=== PATIENT | male | born 1950 | race Caucasian/White ===

== ENCOUNTER 2020-05-21 07:15 | Outpatient (CLI) | payer MEDICARE, SELFPAY ==
--- NOTE | ~2020-05-21 | US_ITS ---
EXAMINATION: US abdomen limited DATE: 05/21/2020 07:44 INDICATION: Abnormal liver function tests. TECHNIQUE: Multiple grayscale and Doppler ultrasound images of the abdomen were obtained. COMPARISON: None FINDINGS: The visualized portions of the head and body of the pancreas are normal. There is diffuse h epatic steatosis. There is normal flow in main portal vein. The gallbladder is absent. The common telma t is normal and measures 3 mm. There is a 2.4 cm hypoechoic mass in right kidney. IMPRESSION: 1. Diffuse hepatic steatosis. 2. 2.4 cm hypoechoic mass in right kidney, which may be a cyst or less likely a neoplasm. Abdomen CT without and with contrast is recommended. Reviewed, dictated and finalized at location A.
== END 2020-05-21 07:16 | disposition home or self-care (01) ==
PROVIDERS: PCP Family Medicine; Visit Provider Family Medicine
DX: R74.8 Abnormal levels of other serum enzymes (principal); K76.0 Fatty (change of) liver, not elsewhere classified
CPT/HCPCS: 76705

== ENCOUNTER 2020-05-27 08:12 | Outpatient (CLI) | payer MEDICARE, SELFPAY ==
--- NOTE | ~2020-05-27 | CT_ITS ---
EXAMINATION: CT abdomen wo/w con INDICATION: Cysts of the right kidney, acquired TECHNIQUE: Computed tomographic images of the abdomen were obtained prior to and following the admini stration of 100 cc of Omnipaque 350 intravenous contrast. The dose-length product (DLP) was 1685.00 m Gy-cm. Automated exposure control and iterative reconstruction technique were employed. COMPARISON: Ultrasound, 05/21/2020 FINDINGS: There are widespread groundglass opacities in the visualized lung bases. Cardiomegaly is no yousif. There are partially imaged pacemaker leads. The gallbladder is surgically absent. Punctate calci fications in the spleen likely represent healed granulomatous disease. A 12 mm cyst is present in the spleen. The liver is diffusely low in attenuation when compared with the spleen, consistent with hep atic steatosis. The pancreas and adrenal glands are normal. There is a 2.6 cm exophytic lesion of the right kidney corresponding to the ultrasound finding in question which measures greater than fluid d ensity but does not enhance, most consistent with a proteinaceous cyst. There is a 1.1 cm cyst in the right mid kidney. Cysts of the left kidney measure up to 1.3 cm. There are no pathologically enlarge d abdominal lymph nodes. A retroaortic left renal vein is noted. There is no free intraperitoneal gas or evidence of bowel obstruction. IMPRESSION: 1. Proteinaceous cyst of the right kidney corresponding to the lesion in question on ultrasound. 2. Widespread groundglass opacities of the visualized lung bases which could reflect atypical pneumon ia (such as COVID 19) or possibly pulmonary edema. Reviewed, dictated and finalized at location B. IMPRESSION: 1. Proteinaceous cyst of the right kidney corresponding to the lesion in questi on on ultrasound. 2. Widespread groundglass opacities of the visualized lung bases which could re flect atypical pneumonia (such as COVID 19) or possibly pulmonary edema.
[2020-05-27 08:44] LABS: Estimated Glomerular Filt Rate 55
== END 2020-05-27 08:13 | disposition home or self-care (01) ==
PROVIDERS: PCP Family Medicine; Visit Provider Family Medicine
DX: N28.1 Cyst of kidney, acquired (principal)
CPT/HCPCS: 74170; Q9967

== ENCOUNTER 2020-08-26 10:30 | Outpatient (CLI) | payer MEDICARE, SELFPAY ==
--- NOTE | ~2020-08-26 | XR_ITS ---
XR chest 2V DATE: 08/26/2020 10:53 INDICATION: Heart failure TECHNIQUE: PA and lateral views COMPARISON: 05/19/2013 PA and lateral chest FINDINGS: Left-sided triple lead pacemaker device with leads overlying right atrium, right ventricle and coronary sinus. Heart size appears within normal range. There is patchy infiltrate in the upper and lower lung zones and left lower lung. No pleural effusion or pulmonary vascular congestion or pneumothorax is detected. Diffuse osteopenia. IMPRESSION: Patchy bilateral infiltrates, right greater than left Reviewed, dictated and finalized at location B.
== END 2020-08-26 10:31 | disposition home or self-care (01) ==
PROVIDERS: PCP Family Medicine; Visit Provider Family Medicine
DX: I50.9 Heart failure, unspecified (principal); R91.8 Other nonspecific abnormal finding of lung field
CPT/HCPCS: 71046

== ENCOUNTER 2020-10-14 10:27 | Outpatient (CLI) | payer MEDICARE, SELFPAY ==
--- NOTE | ~2020-10-14 | XR_ITS ---
EXAMINATION: XR chest 2V DATE: 10/14/2020 10:55 INDICATION: Other nonspecific abnormal finding of lung garza TECHNIQUE: PA and lateral views of the chest were obtained. COMPARISON: Chest radiograph dated 08/26/[address] dated 05/27/2020 FINDINGS: No significant interval change in bilateral mild patchy airspace opacities relatively sparing the lef t upper lung zone and right apex consistent with chronic changes of COVID pneumonia. No pleural effus ion or pneumothorax. The cardiomediastinal silhouette is normal. Three lead pacemaker/AICD seen with leads projecting over the expected locations of the right atrial appendage, apex of the right ventric le and overlying the left ventricle likely having traversed the coronary sinus. There is a fourth lik shahid disconnected cardiac pacemaker lead with distal tip also at the apex of the right ventricle. Chol ecystectomy clips in right upper quadrant. IMPRESSION: 1. Stable appearance of bilateral patchy mild airspace opacities with appearance on radiographs and p rior CT most suggestive of chronic changes of COVID pneumonia. Reviewed, dictated and finalized at location A. IMPRESSION: 1. Stable appearance of bilateral patchy mild airspace opacities with appearanc e on radiographs and prior CT most suggestive of chronic changes of COVID pneum onia.
== END 2020-10-14 10:28 | disposition home or self-care (01) ==
PROVIDERS: PCP Family Medicine; Visit Provider Family Medicine
DX: R91.8 Other nonspecific abnormal finding of lung field (principal); I42.9 Cardiomyopathy, unspecified
CPT/HCPCS: 71046

== ENCOUNTER 2021-05-06 12:29 | Outpatient (CLI) | payer MEDICARE, SELFPAY ==
--- NOTE | ~2021-05-06 | CT_ITS ---
EXAMINATION: CT lumbar spine wo con DATE: 05/06/2021 12:55 INDICATION: Low back pain and right hip and knee pain TECHNIQUE: Computed tomography (CT) of the lumbar spine was performed without intravenous contrast. A utomated exposure control and iterative reconstruction technique were employed. The dose-length produ ct was 1122.80 mGy-cm. COMPARISON: None FINDINGS: Negligible lumbar dextrocurvature. 1 mm retrolisthesis L1 on L2 and L2 on L3. 2 mm anterolisthesis L4 on L5. Likely physiologic anterior wedging, mild at T12 and L1 and minimal at L2 and L3. No fracture . Multilevel mild disc height loss from T11-T12 through L5-S1. Likely degenerative cystic changes uma ng both sides of the articulating cortices at the inferior margin of the L4 spinous processes and cep halad margin of the L5 spinous process. Visualized paravertebral soft tissues are unremarkable. The f ollowing disc levels are specifically discussed: T11-T12: The disc does not extend beyond the endplate margin. There is mild bilateral facet joint ost eoarthritis. There is no neural foraminal stenosis. There is no central canal stenosis. T12-L1: The disc does not extend beyond the endplate margin. There is mild bilateral facet joint oste oarthritis. There is no neural foraminal stenosis. There is no central canal stenosis. L1-L2: Disc is mildly bulging most prominent at the left foraminal zone. There is mild left and mild to moderate right facet joint osteoarthritis. There is mild to moderate bilateral neural foraminal st enosis. There is no central canal stenosis. L2-L3: Disc is bulging. There is mild bilateral facet joint osteoarthritis. There is moderate bilater al neural foraminal stenosis. There is mild central canal stenosis. L3-L4: Disc is bulging. There is moderate bilateral facet joint osteoarthritis. There is mild to mode rate bilateral neural foraminal stenosis. There is moderate central canal stenosis. L4-L5: Disc is bulging. Suggestion of hypertrophy of the ligamentum flavum. There is severe bilateral facet joint osteoarthritis. There is moderate bilateral, left greater than right neural foraminal st enosis. There is moderate to severe central canal stenosis. L5-S1: Disc is bulging. There is altered left and severe right facet joint osteoarthritis. There is a lso moderate left and moderate right neural foraminal stenosis. There is no central canal stenosis. IMPRESSION: 1. Mild lumbar spondylosis but with disc bulges resulting in moderate to severe central canal stenosi s at L3-L4 and L4-L5. Reviewed, dictated and finalized at location A. IMPRESSION: 1. Mild lumbar spondylosis but with disc bulges resulting in moderate to severe central canal stenosis at L3-L4 and L4-L5.
--- NOTE | ~2021-05-06 | CT_ITS ---
EXAMINATION: CT femur RT wo con DATE: 05/06/2021 12:55 INDICATION: Right knee pain TECHNIQUE: Computed tomography (CT) of the right femur was performed without intravenous contrast. Au tomated exposure control and iterative reconstruction technique were employed. The dose-length produc t was 945.09 mGy-cm. COMPARISON: None FINDINGS: Bone alignment is normal. No fracture. Mild right hip osteoarthritis with mild subarticular cystlike changes at the superolateral acetabulum and small marginal osteophytes about both the acetabulum and right femoral head. Mild patellofemoral osteoarthritis with small marginal osteophytes along the prox imal distal patella and small central subchondral osteophyte at the medial patellar facet indicative of overlying high-grade chondromalacia. Joint spaces in the medial and lateral compartments appear un remarkable on nonweightbearing imaging. No right hip or knee joint effusion. Musculature in the right thigh is unremarkable. No pathologically enlarged lymphadenopathy at the right groin or visualized r ight hemipelvis. Prostatomegaly. IMPRESSION: 1. Mild right patellofemoral osteoarthritis with likely region of high-grade chondromalacia at the me dial patellar facet. 2. Mild right hip osteoarthritis. Reviewed, dictated and finalized at location A. IMPRESSION: 1. Mild right patellofemoral osteoarthritis with likely region of high-grade ch ondromalacia at the medial patellar facet. 2. Mild right hip osteoarthritis.
== END 2021-05-06 12:30 | disposition home or self-care (01) ==
PROVIDERS: PCP Family Medicine; Visit Provider Family Medicine
DX: M47.896 Other spondylosis, lumbar region (principal); M51.26 Other intervertebral disc displacement, lumbar region; M16.11 Unilateral primary osteoarthritis, right hip
CPT/HCPCS: 72131; 73700

== ENCOUNTER 2022-06-25 00:59 | Day surgery (SDC) | payer MEDICARE, SELFPAY ==
[2022-06-24 14:04] VITALS: BMI 35.6
--- NOTE | 2022-06-25 10:09 | PM.IMHP ---
H&P: HPI History of Present Illness Date/Time: 06/25/22 10:09 Chief Complaint: BiB pacer at elective replacement interval. Narrative: Mr. Nilton Kelsey is a 72-year-old male followed by Dr. Hutton for his cardiomyopathy. He had a dual-chamber pacemaker placed In 2014 for complete heart block and underwent an upgrade to Bi V pacemaker in April 2021 when his ejection fraction dropped to 20-25%. and echo in 2020 showed improvement of ejection fraction, to 55%. He also has hypertension, sleep apnea on BiPAP, and high triglycerides. He is here for generator change. He is pacemaker dependent. Review of Systems Constitutional: Constitutional: Denies fever(s) Eyes: Eyes: Reports no additional eye complaints ENT: Denies epistaxis Cardiovascular: Cardiovascular: Denies chest pain, Denies pedal edema, Denies lightheadedness and Denies dyspnea Comments: Does have palpitations Respiratory: Respiratory: Denies chest congestion and Denies dyspnea Gastrointestinal: Gastrointestinal: Denies abdominal pain and Denies hematochezia Genitourinary: Genitourinary: Denies dysuria Musculoskeletal: Musculoskeletal: Reports no additional musculoskeletal complaints Integumentary/Breasts: Skin/Breast: Reports system reviewed and no additional complaints, except as docu Neurologic: Reports system reviewed and no additional complaints, except as documented and Denies behavioral changes Psychiatric: Psychiatric: Denies behavioral changes [facility] Past Medical History Medical History (Updated 06/25/22 @ 11:06 by Luna Magallanes MD) Cardiomyopathy Diabetes mellitus HTN (hypertension) Hyperlipidemia Hypertriglyceridemia Pacemaker Medtronic dual-chamber pacemaker May 2013 for complete heart block, upgrade to a biventricular pacemaker for decline in ejection fraction. Generator change 06/25/2022. Surgical History Surgical History Hx of appendectomy Hx of cholecystectomy Family History Family History Father Diabetes mellitus, Onset Age: 68 Family history of cardiovascular disease, Onset Age: 68 Acute myocardial infarction, Onset Age: 68 Sibling Family history of sleep apnea Family history of lung disease Social History Social History Smoking status: Former smoker Tobacco type: cigarettes Second hand tobacco smoke exposure: No Smoking end date: 09/25/83 Alcohol intake: never Substance use: never Substance use type: does not use Lack of Transportation: No Lack of Food: Never True Current Housing: I Have Housing Concerned About Future Housing: No Difficulty Paying Gas/Electric Bills: No Difficulty Paying for Meds: No Currently Unemployed: No Education: Trade/Vocational Certificate Difficulty w/ Childcare or Family Care: No Living arrangements: with family Occupation/Education: retired Gender identity (if verbalized by the patient): Male Spiritual care concerns: No Agree to blood products: Yes Meds Home Medications and Allergies Home Medications Medication Instructions Recorded Confirmed Type carvedilol 6.25 mg tablet (Coreg) 6.25 mg PO Q12H 02/24/19 06/24/22 History lansoprazole 15 mg capsule,delayed 15 mg PO DAILY 02/24/19 06/24/22 History release multivitamin with minerals-iron PO DAILY 02/24/19 06/11/22 History fumarate 9 mg iron/15 mL oral liquid (Multi Vitamin) blood-glucose meter (Accu-Chek #1 ea 04/23/20 06/11/22 History Leticia Plus Meter) blood sugar diagnostic (Accu-Chek #100 ea 08/13/21 06/11/22 Rx Leticia Plus test strips) lancets (Accu-Chek Softclix #100 ea 08/13/21 06/11/22 Rx Lancets) omega-3 fatty acids 1,000 mg 1,000 mg PO BID 10/09/21 06/24/22 History capsule (Fish Oil Concentrate) glipizide 5 mg tablet 5 mg PO DAILY #90 tabs 01/14/2206/24
[2022-06-25 10:50] VITALS: BP 156/82; PULSE 72; RESP 18; TEMP 37.3; O2SAT 94; BMI 35.7
[2022-06-25 11:01] LABS: Hematocrit 43.1 % (42.0-52.0); Hemoglobin 13.3 g/dL (14.0-18.0); Mean Corpuscular HGB Conc 30.9 g/dl (32-36); Mean Corpuscular Hemoglobin 27.5 pg (26-34); Platelet Count Result 185 k/mm3 (150-375); Red Blood Count 4.84 M/mm3 (4.6-6.20); Red Cell Distribution Width 16.6 % (11.5-14.5); White Blood Count 4.9 K/mm3 (4.5-10.0)
--- NOTE | 2022-06-25 11:08 | WPDMODSED ---
Moderate Sedation Note-Pt Data Patient Data Diagnosis: Medtronic dual chamber biventricular pacemaker at elective replacement interval. Present Complaint: Mr. Nilton Kelsey? is a 72-year-old male followed by Dr. Hutton for his cardiomyopathy.? He had a dual-chamber pacemaker placed ? In 2014 for complete heart block and underwent an upgrade to Bi V pacemaker in April 2021 when his ejection fraction dropped to 20-25%. and echo in 2020 showed improvement of ejection fraction, to 55%.? He also has hypertension, sleep apnea on BiPAP, and high triglycerides.? He is here? for generator change. ? He is pacemaker dependent. Procedure to be performed/Plan: Conscious sedation Generator change Allergies Allergy/AdvReac Type Severity Reaction Status Date / Time niacin Allergy Unknown unk Verified 06/25/22 10:47 Home Medications Medication Instructions Recorded Confirmed Type carvedilol 6.25 mg tablet (Coreg) 6.25 mg PO Q12H 02/24/19 06/24/22 History lansoprazole 15 mg capsule,delayed 15 mg PO DAILY 02/24/19 06/24/22 History release multivitamin with minerals-iron PO DAILY 02/24/19 06/11/22 History fumarate 9 mg iron/15 mL oral liquid (Multi Vitamin) blood-glucose meter (Accu-Chek #1 ea 04/23/20 06/11/22 History Leticia Plus Meter) blood sugar diagnostic (Accu-Chek #100 ea 08/13/21 06/11/22 Rx Leticia Plus test strips) lancets (Accu-Chek Softclix #100 ea 08/13/21 06/11/22 Rx Lancets) omega-3 fatty acids 1,000 mg 1,000 mg PO BID 10/09/21 06/24/22 History capsule (Fish Oil Concentrate) glipizide 5 mg tablet 5 mg PO DAILY #90 tabs 01/14/22 06/24/22 Rx cyclobenzaprine 10 mg tablet 10 mg PO TID PRN muscle spasm #30 02/10/22 06/24/22 Rx tabs fenofibrate nanocrystallized 145 145 mg PO DAILY 02/10/22 06/24/22 History mg tablet hydrocodone 5 mg-acetaminophen 325 1 tablet PO Q8H PRN pain #20 tabs 02/10/22 06/24/22 Rx mg tablet metformin 500 mg tablet,extended 1,000 mg PO BID 02/10/22 06/24/22 History release 24 hr potassium chloride 10 mEq 10 meq PO DAILY 02/10/22 06/24/22 History capsule,extended release atorvastatin 40 mg tablet 40 mg PO DAILY #90 tabs 03/11/22 06/24/22 Rx losartan 50 mg tablet 50 mg PO BID #180 tabs 03/11/22 06/24/22 Rx albuterol sulfate 90 mcg/actuation 2 inh inhalation Q4H PRN shortness 04/20/22 06/24/22 Rx aerosol inhaler of breath or wheezing #8.5 grams furosemide 40 mg tablet 40 mg PO DAILY #90 tabs 06/10/22 06/24/22 Rx ergocalciferol (vitamin D2) 1,250 1,250 mcg PO WEEKLY #12 caps 06/11/22 06/24/22 Rx mcg (50,000 unit) capsule (Vitamin D2) Sedation/Anesthesia: No previous sedation/anesthesia problems (including family history). [facility] Past Medical History Medical History (Updated 06/25/22 @ 11:06 by Luna Magallanes MD) Cardiomyopathy Diabetes mellitus HTN (hypertension) Hyperlipidemia Hypertriglyceridemia Pacemaker Medtronic dual-chamber pacemaker May 2013 for complete heart block, upgrade to a biventricular pacemaker for decline in ejection fraction. Generator change 06/25/2022. Surgical History Surgical History Hx of appendectomy Hx of cholecystectomy Family History Family History Father Diabetes mellitus, Onset Age: 68 Family history of cardiovascular disease, Onset Age: 68 Acute myocardial infarction, Onset Age: 68 Sibling Family history of sleep apnea Family history of lung disease Social History Social History Smoking status: Former smoker Tobacco type: cigarettes Second hand tobacco smoke exposure: No Smoking end date: 09/25/83 Alcohol intake: never Substance use: never Substance use type: does not use Lack of Transportation: No Lack of Food: Never True Current Housing: I Have Housing Concerned About Future Housing: No Difficul
[2022-06-25 11:15] LABS: Anion Gap 9 mmol/L (8-16); Blood Urea Nitrogen 17 mg/dL (9-20); Calcium 9.6 mg/dL (8.4-10.2); Carbon Dioxide 26 mmol/L (22-30); Chloride 105 mmol/L (98-107); Estimated CRCL calculation 82 ml/min; Estimated Glomerular Filt Rate > 60; Glucose 135 mg/dL (65-110); Potassium 4.4 mmol/L (3.4-5.0); Sodium 140 mmol/L (137-145)
[2022-06-25 11:19] LABS: Prothrombin Time 13.4 Seconds (11.1-14.7)
--- NOTE | 2022-06-25 13:06 | PM.OP ---
Procedure Note - Brief Procedure Note - Brief Date of procedure: 06/25/22 EMERGENCY MANAGEMENT CONSULTANT Post-op diagnosis: Same Procedure performed: Conscious sedation Generator change Surgeon: Luna Magallanes MD Description of procedure: uneventful generator change for a dual-chamber biventricular ICD Complications: No immediate complications Condition: Stable Disposition: Observation
--- NOTE | 2022-06-25 13:07 | W.PM.PROC2 ---
Procedure Note - Detailed Date of Procedure 06/25/22 Pre-op Diagnosis [facility] Post-op Diagnosis Same Procedure Performed Conscious sedation Medtronic dual-chamber biventricular ICD Generator change Surgeon Luna Magallanes MD Anesthesia Local ( with conscious sedation) Indications Mr. Nilton Kelsey? is a 72-year-old male followed by Dr. Poe for his cardiomyopathy.? He had a dual-chamber pacemaker placed ? In 2014 for complete heart block and underwent an upgrade to BiV ICD pacemaker in April [address] Nix when his ejection fraction dropped to 20-25%. An echo in 2020 showed improvement of ejection fraction, to 55%.? He also has hypertension, sleep apnea on BiPAP, and high triglycerides.? He is here? for generator change. ? He is pacemaker dependent. Findings Has a very slow underlying rhythm Description of Procedure CONSCIOUS SEDATION: Assessment: The patient has no history of anesthesia problems. The oropharynx is clear. The patient was deemed to be a good candidate for conscious sedation. The patient had continuous hemodynamic and oximetric monitoring during the procedure. Start time: 12:12 p.m. Completion time: 1:04 p.m. Total conscious sedation time: 52 minutes Medications: Versed 4 mg, fentanyl 100 mcg IV push Trained observer: Jaja Ulloa RN Outcome: The patient tolerated the procedure well with no complications. PROCEDURE: After informed consent, the patient is brought to the computer lab para professional and the left prepectoral area was prepped and draped in usual fashion. The patient was given a prophylactic antibiotic intravenously with Ancef 2 g IV push. After conscious sedation as described above, the area was anesthetized with 1% lidocaine. A skin incision is made with the Plasma Blade and carried down to the pacing capsule which was also incised. Hemostasis is obtained using the Plasma Blade. The lead/s was/were freed from the underlying capsule and inspected and were found to be intact. The pulse generator was delivered from the pocket. The lead/s was/were disconnected from the existing device and reconnected to the new device. A gentle tug could not remove it/them. The device and lead/s was/were interrogated and found to be functioning appropriately. The area was copiously irrigated with antibiotic-containing solution. a tie Noe antibiotic pouch was placed in the pocket. The device was replaced in the Pouch. The subcutaneous tissues were closed in a two-layer fashion with interrupted 2 0 Vicryl sutures and the skin was closed in a continuous fashion using 4 0 Vicryl. The area was cleansed, an Aquacel dressing applied. The patient tolerated the procedure well with no complications. Estimated blood loss was negligible. THRESHOLD INFORMATION: Right atrial lead: P-wave sensing 4.1 mV, impedance 380 Ohms, threshold 1.0 volts at 0.4 milliseconds Rght ventricular lead: No R-waves, impedances 399 Ohms, high-voltage impedance 68 Ohms, threshold 1.5 volts at 0.4 milliseconds Left ventricular lead: No R-waves, impedance 570 Ohms, threshold 1.25 volts at 1.0 milliseconds PROGRAMMED PARAMETERS: DDD 60-130 Implants DEVICE INFORMATION: New pulse generator: Medtronic model [id number], Serial [id number] Existing right atrial lead: Medtronic model 5076-45, serial [id number], implanted 05/18/2013 Existing right ventricular lead: Medtronic model 2042F68, serial [id number], implanted 08/02/2015 Left ventricular lead: Medtronic model 10917, serial [id number], implanted 08/02/2015 Explanted device: Medtronic model [id number], serial [id number] [id number] Estimated Blood Loss 5 (cc) Complications No immediate complications Condition Stable Disposition Observation
[2022-06-25 13:20] VITALS: BP 130/74; PULSE 70; RESP 14; O2SAT 93
[2022-06-25 13:30] VITALS: BP 133/74; PULSE 70; RESP 16; O2SAT 92
[2022-06-25 13:45] VITALS: BP 144/70; PULSE 70; RESP 22; O2SAT 93
[2022-06-25 14:00] VITALS: BP 128/73; PULSE 65; RESP 18; O2SAT 92
== END 2022-06-25 14:25 | disposition home or self-care (01) ==
PROVIDERS: PCP Family Medicine; Visit Provider Internal Medicine Cardiovascular Disease
PROC: 0JPT0PZ Removal of Cardiac Rhythm Related Device from Trunk Subcutaneous Tissue and Fascia, Open Approach (ICD-10-PCS; CPT 33264; principal; 2022-06-25 11:30)
DX: Z45.02 Encounter for adjustment and management of automatic implantable cardiac defibrillator (principal); I44.2 Atrioventricular block, complete; I42.8 Other cardiomyopathies; I11.0 Hypertensive heart disease with heart failure; I50.22 Chronic systolic (congestive) heart failure; E78.5 Hyperlipidemia, unspecified; E11.9 Type 2 diabetes mellitus without complications; Z87.891 Personal history of nicotine dependence; Z79.84 Long term (current) use of oral hypoglycemic drugs; Z79.51 Long term (current) use of inhaled steroids; Z79.891 Long term (current) use of opiate analgesic
CPT/HCPCS: 33264; 36415; 80048; 85027; 85610; C1882; J0690; J2250; J3010; J7040

== ENCOUNTER 2022-08-04 06:56 | Day surgery (SDC) | payer MEDICARE, SELFPAY ==
[2022-07-24 10:28] VITALS: BMI 36.0
[2022-07-28 11:10] VITALS: BMI 36.3
--- NOTE | ~2022-08-04 | XR_ITS ---
CORRECTED REPORT exam description change [facility] 08/05/22 This report was recreated on 08/05/22. Original report was . EXAMINATION: XR fluoroscopy no charge DATE: 08/04/2022 08:52 INDICATION: Right L3-L4 and L4-L5 transforaminal epidural steroid injection TECHNIQUE: A total of 60 fluoroscopic images of the lower lumbar spine were obtained during procedure performed by Dr. Spangler. Radiologist was not present for the imaging or procedure. The amount of fluoroscopy time used during this procedure was 0.4 minutes. COMPARISON: None. FINDINGS: Images demonstrate needles advanced to the posterior aspect of the left L3-L4 and L4-L5 neural foramina. Contrast injected through both needles opacifies the epidural fat at both neural foramina. No evident intrathecal or intravascular extension of contrast on the digital subtracted images. IMPRESSION: 1. Fluoroscopy utilized during transforaminal epidural steroid injections at L3- L4 and L4-L5, reportedly on the right. See procedure note for further detail. Reviewed, dictated and finalized at location A. MTDD IMPRESSION: 1. Fluoroscopy utilized during transforaminal epidural steroid injections at L3 -L4 and L4-L5, reportedly on the right. See procedure note for further detail.
[2022-08-04 07:20] VITALS: BP 154/73; PULSE 76; RESP 20; TEMP 36.3; O2SAT 93
--- NOTE | 2022-08-04 08:13 | WPDHPUPDATE1 ---
History and Physical Update Update Date/Time: 08/04/22 08:13 History and Physical has been reviewed, including an updated exam of the patient. There are NO changes in the patient's condition. Risks, benefits, and alternatives have been discussed and questions answered. Patient agrees to proceed with procedure.
--- NOTE | 2022-08-04 08:18 | WPDHPUPDATE1 ---
History and Physical Update Update Date/Time: 08/04/22 08:18 History and Physical has been reviewed, including an updated exam of the patient. There are NO changes in the patient's condition. Risks, benefits, and alternatives have been discussed and questions answered. Patient agrees to proceed with procedure.
[2022-08-04 08:30] VITALS: BP 141/81; PULSE 75; RESP 14; O2SAT 93
[2022-08-04 08:35] VITALS: BP 140/80; PULSE 74; RESP 19; O2SAT 93
[2022-08-04 08:43] VITALS: BP 129/83; PULSE 71; RESP 14; O2SAT 96
--- NOTE | 2022-08-04 09:47 | W.PM.PROC2 ---
Procedure Note - Detailed Date of Procedure 08/04/22 Pre-op Diagnosis M48.062 Post-op Diagnosis Same Procedure Performed right L3-4, L4-5 transforaminal epidural steroid injection under fluoroscopic guidance. Surgeon Dave Spangler MD Car Hopper None. Anesthesia Local Indications Right lumbar radiculopathy. Findings None. Description of Procedure INFORMED CONSENT: Risks, benefits and alternatives to the procedure were discussed in detail with the patient who expressed explicit understanding and consent to proceed. Patient was informed verbally and in written form regarding the risks associated with the procedure including the low risk of serious infection, bleeding/bruising, allergic reaction, nerve or organ injury, paralysis, procedural site pain or discomfort, worsening pain and/or mobility, failure to treat and/or disfigurement. The patient expressed explicit understanding and consent to proceed. All materials required for the procedure were available prior to procedure start. Site and side was marked prior to procedure and confirmed in the presence of the patient. PROCEDURE IN DETAIL: The patient was brought to the procedural suite and placed in the prone position. Patient was made comfortable with use of pillows under the head/chest, hips and ankles. Skin overlying the injection site was prepared broadly with ChloraPrep applicator and draped in a sterile manner. Aseptic technique was employed throughout. The endplates of the vertebral body at the site of interest were aligned in the AP view. Ipsilateral oblique angulation was utilized to better visualize the neuroforamen of interest. Local anesthesia was established by infiltration with approximately 5 mL of 2% lidocaine via a 1-1/2 inch 27-gauge needle. A 22-gauge 5.0 inch Josee (pencil point) spinal needle was advanced until the needle approached the 6 o'clock position on the pedicle just superior to the exiting nerve root. on the right at L4-5. Lateral view was utilized to confirm appropriate position of the needle tip within the superior and posterior portion of the respective foramen. In an AP view, 1 mL of Omnipaque 180 contrast medium was injected after negative aspiration for CSF, blood or other bodily fluid, showing appropriate neurogram without evidence of intravascular or intrathecal spread of contrast. Digital subtraction imaging was used with an additional 1ml of the same contrast medium to confirm absence of intravascular contrast spread. A 1mL solution containing 5 mg of dexamethasone was injected after negative repeat aspiration. Appropriate spread of the injectate was confirmed with washout of previously injected contrast. No parasthesias were elicited. Needle was removed completely intact without difficulty. The same exact procedure was repeated for all remaining levels on the ipsilateral side, right L3-4 neural foramen, modified as necessary to accommodate for the new target location with identical findings and results and no evidence of complication. Images were saved and documented in the patient chart. Patient's skin was cleaned and sterile bandage applied. The patient tolerated the procedure well. The patient was transported to the recovery area in stable condition where they were observed for an appropriate amount of time prior to discharge, without evidence of complication. The patient was instructed to avoid excessive activity for the next 48 hours, including climbing and frequent use of stairs. Showers only for 48 hours. They were instructed not to drive or operate heavy machinery for 24 hours. They are to monitor for severe headaches, fevers, chills, night sweats, erythema/swelling at the site or any other signs of infection, bleeding/bruising, bowel or bladder changes as well as new pain, weakness or numbness in the upper or lower extremity. Should they notice these changes, they are instructed to call our office immediately or report directly to the nearest Emergency
[2022-08-04] MEDS: LIDOCAINE HCL 2% PF INJ 5 ML VIAL 1 ML INFILTRATE (10:34)
== END 2022-08-04 09:11 | disposition home or self-care (01) ==
PROVIDERS: PCP Family Medicine; Visit Provider Anesthesiology Pain Medicine
PROC: (CPT 64483; principal; 2022-08-04 08:00)
DX: M48.062 Spinal stenosis, lumbar region with neurogenic claudication (principal)
CPT/HCPCS: 64483; 99199

== ENCOUNTER 2022-08-31 08:00 | Outpatient (RCR) | payer MEDICARE, SELFPAY ==
--- NOTE | 2022-07-22 09:14 | OPREHPOC ---
Outpatient Therapy Plan of Care This is a Multidisciplinary Plan of Care that may contain components documented by all disciplines (PT, OT, and ST.) PT Problem 1 PT Problem #1 Knowledge Deficit PT Goal 1 Goal Pt to be IND with issued HEP. Target Visit 6 PT Problem 2 PT Problem #2 Pain PT Goal 1 Goal Pt to report pain no greater than 3/10 in the last week Target Visit 6 PT Goal 2 Goal Pt to report 50% improvement in overall symptoms Target Visit 6 PT Problem 3 PT Problem #3 Impaired Strength PT Goal 1 Goal Pt to demonstrate good core engagement during supine exercises Target Visit 6 PT Goal 2 Goal Pt to demonstrate R hip strength equal to L hip strength. Target Visit 6 PT Problem 4 PT Problem #4 Impaired Range of Motion PT Goal 1 Goal Pt to demonstrate pain free lumbar and hip active ROM Target Visit 6 PT Goal 2 Goal Pt to increase hamstring length to -45 deg Target Visit 6
--- NOTE | 2022-07-22 09:14 | PTOPEVAL1 ---
Assessment and note entered by Leighton Parsons, PT, DPT Evaluation Information Assessment Status Evaluation Diagnosis low back and R hip pain Onset 3 years Subjective Information Pt states he has chronic back pain, he reports 5 bulging disc in his low back that he thinks are pressing on nerves leading down into his hip. He states he has done therapy prior without much help . He states what gave him the most relief was the injections he received into his hip. Pt states he wants to return to golf without limitations. Reported Pain Level Pain Score 2: Self Report Assessment PT Clinical Summary Nilton presents to therapy today for his initial evaluation with a diagnosis of R hip pain and spondylosis. Today he demonstrates decreased lumbar and R hip ROM in all directions, with pain increasing in certain planes. He demonstrates core weakness and decreased R hip weakness. Skilled therapy services are indicated to address the deficits noted above, to manage pain, and to improve functional mobility. Plan of Care Interventions Electrical Stimulation,Gait Training,Hot Pack/Cold Pack,Manual Therapy,Neuro Re-education,Patient/ Caregiver Educati,Therapeutic Activities, Therapeutic Exercise PT Services Indicated Yes Treatment Frequency and 1x/wk for 6 wks Duration These treatments will address the objective and functional deficits as defined above. The patient will be advanced safely and appropriately in order for the patient to progress towards his/her prior level of function. Additional exercises will be introduced and as well as a comprehensive home exercise program upon discharge, if needed, ?to ensure carryover of functional gains achieved in the clinic. This treatment plan has been reviewed and agreement upon by the patient.
--- NOTE | 2022-08-31 08:26 | PTOPDC ---
Assessment and note entered by Leighton Parsons, PT, DPT Evaluation Information Assessment Status Discharge Diagnosis low back and R hip pain Onset 3 years Subjective Information Pt reports his back and R hip and doing great. He reports 100% improvement in overall symptoms. He states he does not have pain for the most part. He declines any pain in the last week. Reported Pain Level Pain Score 0: Self Report Assessment PT Clinical Summary Nilton presents to therapy today for his progress report following 6 visits of skilled therapy to treat his diagnosis of R hip pain and spondylosis. Today he demonstrates improve lumbar and pilar hip ROM that is no longer limited by pain. He ambulates without gait deviations. He continues to have shortened hamstrings pilar and decreased abdominal stabilization with functional transfers, he was educated on this today. He has met or progressed well towards his therapy goals and will be discharged at this time. Plan of Care PT Services Indicated No
== END 2022-08-31 10:10 | disposition home or self-care (01) ==
LOC: ANHGOSHPT 08:00
PROVIDERS: PCP Family Medicine; Visit Provider Anesthesiology Pain Medicine
DX: M25.551 Pain in right hip (principal); M47.817 Spondylosis without myelopathy or radiculopathy, lumbosacral region
CPT/HCPCS: 97110; 97112; 97140; 97161; 97530

== ENCOUNTER 2023-03-18 14:15 | Outpatient (RCR) | payer MEDICARE, SELFPAY | END 2023-03-22 08:55 | disposition home or self-care (01) | LOC: ANHDMC 14:15 | PROVIDERS: PCP Family Medicine; Visit Provider Nurse Practitioner | DX: E11.65 Type 2 diabetes mellitus with hyperglycemia (principal); Z71.89 Other specified counseling | CPT/HCPCS: 95250; G0108 ==

== ENCOUNTER 2023-05-04 09:07 | Day surgery (SDC) | payer MEDICARE, SELFPAY ==
--- NOTE | ~2023-05-04 | XR_ITS ---
EXAMINATION: XR fluoroscopy no charge DATE: 05/04/2023 11:30 CDT INDICATION: MARYBEL L4-5 TRANSFORAMINAL INJ . TECHNIQUE: 4 fluoroscopic images, and 2 cine clips of the lumbar spine were obtained during bilateral L4-5 transforaminal injection, performed by Dave Spangler MD. I was not present during the proced ure. Fluoroscopy exposure time was 16.4 seconds. Air Kerma 7.46 mGy. COMPARISON: None FINDINGS/IMPRESSION: Fluoroscopic documentation of bilateral L4-5 transforaminal injection. Please refer to the operative note for complete procedural details. Reviewed, dictated and finalized at location K.
[2023-05-04 10:18] VITALS: BP 139/85; PULSE 84; RESP 18; TEMP 36.4; O2SAT 94
--- NOTE | 2023-05-04 11:03 | WPDHPUPDATE1 ---
History and Physical Update Update Date/Time: 05/04/23 11:03 History and Physical has been reviewed, including an updated exam of the patient. There are NO changes in the patient's condition. Risks, benefits, and alternatives have been discussed and questions answered. Patient agrees to proceed with procedure.
--- NOTE | 2023-05-04 11:04 | W.PM.PROC2 ---
Procedure Note - Detailed Date of Procedure 05/04/23 Pre-op Diagnosis Lumbar Radiculopathy, Lumbar Spinal Stenosis w/Neurogenic Claudication Post-op Diagnosis Same Procedure Performed bilateral L4-5 transforaminal epidural steroid injection under fluoroscopic guidance with contrast control. Surgeon Dave Spangler MD Anesthesia Local Description of Procedure INFORMED CONSENT: Risks, benefits and alternatives to the procedure were discussed in detail with the patient who expressed explicit understanding and consent to proceed. Patient was informed verbally and in written form regarding the risks associated with the procedure including the low risk of serious infection, bleeding/bruising, allergic reaction, nerve or organ injury, paralysis, procedural site pain or discomfort, worsening pain and/or mobility, failure to treat and/or disfigurement. The patient expressed explicit understanding and consent to proceed. All materials required for the procedure were available prior to procedure start. Site and side was marked prior to procedure and confirmed in the presence of the patient. PROCEDURE IN DETAIL: The patient was brought to the procedural suite and placed in the prone position. Patient was made comfortable with use of pillows under the head/chest, hips and ankles. Skin overlying the injection site was prepared broadly with ChloraPrep applicator and draped in a sterile manner. Aseptic technique was employed throughout. The endplates of the vertebral body at the site of interest were aligned in the AP view. Ipsilateral oblique angulation was utilized to better visualize the neuroforamen of interest. Local anesthesia was established by infiltration with approximately 5 mL of 2% lidocaine via a 1-1/2 inch 27-gauge needle. A 22-gauge 5.0 inch Josee (pencil point) spinal needle was advanced until the needle approached the 6 o'clock position on the pedicle just superior to the exiting nerve root. on the right at L4-5. Lateral view was utilized to confirm appropriate position of the needle tip within the superior and posterior portion of the respective foramen. In an AP view, 1 mL of Omnipaque 300 contrast medium was injected after negative aspiration for CSF, blood or other bodily fluid, showing appropriate neurogram without evidence of intravascular or intrathecal spread of contrast. Digital subtraction imaging was used with an additional 1ml of the same contrast medium to confirm absence of intravascular contrast spread. A 1mL solution containing 3 mg of betamethasone was injected after negative repeat aspiration. Appropriate spread of the injectate was confirmed with washout of previously injected contrast. No parasthesias were elicited. Needle was removed completely intact without difficulty. The same exact procedure was repeated for all remaining levels on the contralateral side, left L4-5 neuroforamen, modified as necessary to accommodate for the new target location with identical findings and results and no evidence of complication. Images were saved and documented in the patient chart. Patient's skin was cleaned and sterile bandage applied. The patient tolerated the procedure well. The patient was transported to the recovery area in stable condition where they were observed for an appropriate amount of time prior to discharge, without evidence of complication. The patient was instructed to avoid excessive activity for the next 48 hours, including climbing and frequent use of stairs. Showers only for 48 hours. They were instructed not to drive or operate heavy machinery for 24 hours. They are to monitor for severe headaches, fevers, chills, night sweats, erythema/swelling at the site or any other signs of infection, bleeding/bruising, bowel or bladder changes as well as new pain, weakness or numbness in the upper or lower extremity. Should they notice these changes, they are instructed to call our office immediately or report directly to the nearest [facility]
[2023-05-04 11:37] VITALS: BP 150/81; PULSE 89; RESP 14; O2SAT 92
[2023-05-04 11:42] VITALS: BP 136/83; PULSE 80; RESP 14; O2SAT 93
[2023-05-04] MEDS: LIDOCAINE HCL 2% PF INJ 5 ML VIAL INFILTRATE (11:44)
[2023-05-04] MEDS: BETAMETHASONE SODIUM PHOSPHATE PF INJ 6 MG/ML VIAL INFILTRATE (11:44)
[2023-05-04 11:46] VITALS: BP 126/87; PULSE 92; RESP 18; O2SAT 97
== END 2023-05-04 12:00 | disposition home or self-care (01) ==
PROVIDERS: PCP Family Medicine; Visit Provider Anesthesiology Pain Medicine
PROC: (CPT 64483; principal; 2023-05-04 11:00)
DX: M54.16 Radiculopathy, lumbar region (principal); M48.062 Spinal stenosis, lumbar region with neurogenic claudication
CPT/HCPCS: 64483 ×2; 99199

== ENCOUNTER 2023-07-06 13:00 | Outpatient (RCR) | payer MEDICARE, SELFPAY | END 2023-07-19 09:32 | disposition home or self-care (01) | LOC: ANHDMC 13:00 | PROVIDERS: PCP Family Medicine; Visit Provider Nurse Practitioner | DX: E11.65 Type 2 diabetes mellitus with hyperglycemia (principal); Z71.89 Other specified counseling | CPT/HCPCS: G0108 ==

== ENCOUNTER 2023-09-16 11:23 | Outpatient (CLI) | payer MEDICARE, SELFPAY ==
[2023-09-16 12:18] LABS: Anion Gap 11 mmol/L (4-12); Blood Urea Nitrogen 19 mg/dL (9-20); Calcium 10.7 mg/dL (8.4-10.2); Carbon Dioxide 27 mmol/L (22-30); Chloride 100 mmol/L (98-107); Estimated Glomerular Filt Rate > 60; Glucose 103 mg/dL (65-110); Potassium 4.1 mmol/L (3.4-5.0); Sodium 138 mmol/L (137-145)
== END 2023-09-16 11:24 | disposition home or self-care (01) ==
LOC: ANHSURGERY 11:31
PROVIDERS: Anesthesiology; PCP Family Medicine; Visit Provider Anesthesiology Pain Medicine
DX: E11.9 Type 2 diabetes mellitus without complications (principal); Z01.818 Encounter for other preprocedural examination
CPT/HCPCS: 36415; 80048

== ENCOUNTER 2023-09-20 01:02 | Day surgery (SDC) | payer MEDICARE, SELFPAY ==
[2023-09-16 09:36] VITALS: BMI 32.3
--- NOTE | 2023-09-16 10:17 | PC.NURSE ---
Report to the Outpatient Waiting Room, entrance under the green pavilion located off [facility], at time ___07:00am____ on date ___09/20/23____. Planned Procedure Time: ___09:00am____. Time changes happen often and if your time is changed the preop area will call you the afternoon before. - You and your visitor will be asked to self-screen and do not enter if you have any COVID symptoms. - A mask is optional within the hospital at this time. Patients * - No food or drink from midnight until time of surgery Take the following medications with a SIP of water the morning of surgery: __ Carvedilol, and use inhaler if needed. May take Cyclobenzaprine and Hydrocodone as needed for pain. DO NOT STOP ANY OF YOUR OTHER PRESCRIPTION MEDICATIONS PRIOR TO SURGERY ?EXCEPT THE FOLLOWING Medications to discontinue per physician __Hold all vitamin and supplements 3 days prior to Surgery per Anesthesia. Date to take last dose 09/16/23 Pt is not to take any NSAIDS, or Aspirin for [address] Spangler. Please no make-up, nail greenlandic, hairspray, perfume, deodorant, or body powder the day of surgery. No jewelry (including any body piercings) or valuables the day of surgery, leave them at home. Please take a shower or bath the night before, or the morning of, surgery with an antibacterial soap. Wear comfortable, loose fitting clothing. Children are encouraged to wear pajamas. - Jewelry must be removed prior to entering the operating room. Rings and piercings that are not removed may be cut off. - The hospital will not accept responsibility for valuables. - Please leave all valuables, including medications, at home the day of surgery. If you are going home after surgery, a licensed wheelchair driver must drive you home. - NO public transportation without another adult if you receive anesthesia. - We recommend that an adult stay with you for 24 hours following discharge. - We also recommend that you do not drive, make important decision, drink alcoholic beverages, or take any drugs that were not prescribed by your health care provider for at least 24 hours after your discharge time. Follow any additional instructions given to you from your surgeon. If you or anyone in your household have experienced Covid symptoms in the past week, please notify your surgeon or the nurse liaison at the phone number below for possible testing. Telephone instructions given to __patient via phone and asked if any additional questions and then verbalized understanding. Patient advised to call surgeon office or pre surgery nurse liaison [phone] if any additional questions.
[2023-09-20] VITALS (10 sets, daily range): BP systolic 108–134; BP diastolic 54–87; PULSE 63–79; RESP 12–20; TEMP 36.5–36.6; O2SAT 91–95
--- NOTE | ~2023-09-20 | XR_ITS ---
EXAMINATION: XR fluoroscopy no charge DATE: 09/20/2023 9:20 CDT INDICATION: MINIMALLY INVASIVE LUMBAR DECOMPRESSION BILATERAL L3-4, L4-5 . TECHNIQUE: 16 fluoroscopic images of the lumbar spine were obtained during bilateral L3-4 and L4-5 mi nimally invasive lumbar decompression, performed by Dave Spangler MD. I was not present during the procedure. Fluoroscopy exposure time was seconds. Air Kerma mGy. DAP mGym2. COMPARISON: None FINDINGS/IMPRESSION: Fluoroscopic documentation of bilateral L3-4 and L4-5 minimally invasive lumbar decompression. Please refer to the operative note for complete procedural details . Reviewed, dictated and finalized at location K.
--- NOTE | 2023-09-20 05:48 | PM.HPGS ---
History of Present Illness History of Present Illness Consent: Risks, benefits, and alternatives have been discussed and questions answered. Patient agrees to proceed with procedure. Chief complaint: lumbar stenosis Narrative: Nilton Kelsey is a 73 year old male with chronic, recalcitrant and disabling bilateral lumbosacral intermittent neurogenic claudication secondary to degenerative lumbar stenosis with significant ligamentum flavum hypertrophy resulting in moderate to severe central canal stenosis at the L3-4 and L4-5 levels with failure to respond to aggressive conservative measures including PT, oral and topical analgesics, opioid and nonopioid analgesics, rest, time and activity/behavioral modification over the past 1-2 years who presents for minimally invasive lumbar decompression bilaterally at L3-4 and L4-5 under fluoroscopic guidance with possible epidurogram. Review of Systems Review of Systems: Patient denies any new infectious, allergic, cardiopulmonary, neurologic or constitutional symptoms or changes in activity tolerance or exercise capacity including new or progressive SOB/GUILLAUME, peripheral edema, productive cough, dysuria, nausea/vomiting, diarrhea, weight change, fevers/chills/night sweats, new or progressive neurologic deficit, cognitive or mood changes since last seen, except as documented in the HPI. All systems reviewed & are unremarkable except as noted in HPI and below PMFSH Past Medical History Medical History Cardiomyopathy Diabetes mellitus HTN (hypertension) Hyperlipidemia Hypertriglyceridemia Pacemaker Medtronic dual-chamber pacemaker May 2013 for complete heart block, upgrade to a biventricular pacemaker for decline in ejection fraction. Generator change 06/25/2022. Surgical History Surgical History Hx of appendectomy Hx of cholecystectomy Family History Family History Father Diabetes mellitus, Onset Age: 68 Family history of cardiovascular disease, Onset Age: 68 Acute myocardial infarction, Onset Age: 68 Sibling Family history of sleep apnea Family history of lung disease Social History Social History Smoking packs per day: 4 Smoking cigarettes per day: 80.0 Years smoked: 12 Smoking pack-years: 48.00 Smoking status: Former smoker Tobacco type: cigarettes Second hand tobacco smoke exposure: Yes Smoking end date: 09/25/83 Alcohol intake: never Substance use: never Substance use type: does not use Lack of Transportation: No Lack of Food: Never True Current Housing: I Have Housing Concerned About Future Housing: No Difficulty Paying Gas/Electric Bills: No Difficulty Paying for Meds: No Currently Unemployed: No Education: Trade/Vocational Certificate Difficulty w/ Childcare or Family Care: No Living arrangements: with family Additional living arrangements comments: Occupation/Education: retired Gender identity (if verbalized by the patient): Male Spiritual care concerns: No Agree to blood products: Yes Meds Home Medications and Allergies Home Medications Medication Instructions Recorded Confirmed Type carvedilol 6.25 mg tablet (Coreg) 6.25 mg PO Q12H 02/24/19 09/16/23 History lansoprazole 15 mg capsule,delayed 15 mg PO DAILY 02/24/19 09/16/23 History release multivitamin with minerals-iron 15 ml PO DAILY 02/24/19 09/16/23 History fumarate 9 mg iron/15 mL oral liquid (Multi Vitamin) omega-3 fatty acids 1,000 mg 2,000 mg PO BID 10/09/21 09/16/23 History capsule (Fish Oil Concentrate) albuterol sulfate 90 mcg/actuation 2 inh inhalation Q4H PRN shortness 04/20/22 09/16/23 Rx aerosol inhaler of breath or wheezing #8.5 grams cholecalciferol (vitamin D3) 50 50 mcg PO DAILY
--- NOTE | 2023-09-20 05:53 | WPDHPUPDATE1 ---
History and Physical Update Update Date/Time: 09/20/23 05:53 History and Physical has been reviewed, including an updated exam of the patient. There are NO changes in the patient's condition. Risks, benefits, and alternatives have been discussed and questions answered. Patient agrees to proceed with procedure.
--- NOTE | 2023-09-20 05:56 | W.PM.PROC2 ---
Procedure Note - Detailed Date of Procedure 09/20/23 Pre-op Diagnosis lumbar stenosis with neurogenic claudication Post-op Diagnosis Same Procedure Performed Bilateral Minimally Invasive Lumbar Decompression (MILD) at L3-4, L4-5 under Fluoroscopic Guidance. Surgeon Dave Spangler MD Anesthesia Other ([Moderate IV sedation/MAC] with local anesthetic infiltration in the prone position) Description of Procedure INFORMED CONSENT: Risks, benefits, and alternatives to the procedure were discussed in detail with the patient who expressed explicit understanding and consent to proceed. Risks discussed with the patient included but were not limited to risk of serious local or systemic infection, bleeding/bruising, epidural hematoma, dural puncture or tear resulting in CSF leak and acute or chronic post-dural puncture headache, scarring/deformity, immediate or delayed allergic reaction, decreased mobility, failure to treat pain, inadvertent neurologic injury resulting in increased pain, weakness/paralysis or numbness, inadvertent organ injury, need for additional surgery, allergic reaction, heart attack, stroke, seizure, coma, . Anesthetic risks were also briefly discussed by myself and the pricing manager. The patient expressed understanding and consent to proceed, agreeing that potential benefits outweigh risk of harm. All materials required for the procedure were immediately available prior to procedure start. Site and side were confirmed with the patient, compared carefully to the patient chart and consent, and marked prior to transport to the operating room. Appropriate time out procedure was performed per protocol prior to procedure start. PROCEDURE IN DETAIL: The patient was brought to the operative suite and placed in the prone position. Appropriate ASA standard monitors were attached. Anesthesia was initiated without difficulty or event. Eyes were protected. Pressure points were padded with joints in neutral position. When appropriate, breasts and genitals were evaluated and protected. Eyes were checked and were free from undue pressure. Skin overlying the procedure site was marked with sterile marker. Surgical area was prepared in a typical sterile fashion with ChloraPrep and allowed to dry for at least 3 minutes prior to sterilely draping the surgical site. The lumbar spine was identified in the AP fluoroscopic view with slight cephalad tilt perfectly aligning the endplates at the targeted levels with spinous processes bisecting the transpedicular plane. After identifying the intended incision site approximately 1.5 levels inferior to the level of interest, the area was anesthetized by infiltration with no more than 10ml of a 1:1 admixture of 0.5% PF bupivacaine with epinephrine and 2% PF lidocaine with epinepherine via a 27-gauge needle after negative aspiration. A 22-gauge spinal needle was used to provide additional and adequate local anesthesia to the level of the interspinous ligament, ligamentum flavum and the periosteum of the lamina at the intended treatment levels. In the AP view, a #11 scalpel blade was used to create a single stab incision at the intended incision site on the targeted side. The Vertos MILD kit was opened and the included cannula and trocar assembly was advanced through the incision to contact the midportion of the right lamina just adjacent to the spinous process at L5. Once seated, the lateral view was used to gauge depth demonstrating the most anterior tip of the trocar posterior to the epidural space at all times. The environmental health officer-provided cannula stabilizer was placed over the trocar flush to the patient's lumbar flank. Cannula obturator with handle was removed. Included depth guide was then attached to the insertion port on the cannula and set to an intial depth of 15 mm. The bone rongeur was advanced to the depth of the lumbar lamina at the targeted level. Depth gauge was then adjusted allowing rongeur tip to advan
[2023-09-20] MEDS: LACTATED RINGERS 1,000 ML 30 ML IV CONT ×2 (07:25→10:45)
[2023-09-20 07:40] LABS: Glucose Point of Care 147 mg/dl (65-105)
--- NOTE | 2023-09-20 08:48 | WPDANESEPPF ---
Anes - Initial Pre Proc Eval Procedure: Operation Date: 09/20/23 09:00 Proposed Procedures p Minimally Invasive Lumbar Decompression Bilateral L3-4, L4-5 - Dave Spangler MD Date/Time: 09/20/23 08:48 Surgeon: Dave Spangler MD Pre Op Diagnosis: lumbar stenosis Patient Data Age: 73 Gender: M Height: 1.68 m Weight: 94 kg Last Vital Signs Temp 97.7 F 09/20/23 06:58 Pulse 79 09/20/23 06:58 Resp 20 09/20/23 06:58 BP 122/63 09/20/23 06:58 Pulse Ox 91 09/20/23 06:58 O2 Del Method Room Air 09/20/23 06:58 Allergies Allergy/AdvReac Type Severity Reaction Status Date / Time niacin Allergy Severe Flushing Verified 09/20/23 06:54 Home Medications Medication Instructions Recorded Confirmed Type carvedilol 6.25 mg tablet (Coreg) 6.25 mg PO Q12H 02/24/19 09/20/23 History lansoprazole 15 mg capsule,delayed 15 mg PO DAILY 02/24/19 09/20/23 History release multivitamin with minerals-iron 15 ml PO DAILY 02/24/19 09/20/23 History fumarate 9 mg iron/15 mL oral liquid (Multi Vitamin) omega-3 fatty acids 1,000 mg 2,000 mg PO BID 10/09/21 09/20/23 History capsule (Fish Oil Concentrate) albuterol sulfate 90 mcg/actuation 2 inh inhalation Q4H PRN shortness 04/20/22 09/20/23 Rx aerosol inhaler of breath or wheezing #8.5 grams cholecalciferol (vitamin D3) 50 50 mcg PO DAILY 12/23/22 09/20/23 History mcg (2,000 unit) tablet alcohol swabs (BD Alcohol Swabs) 1 pad topical TID PRN insulin 12/28/22 09/16/23 Rx administration #200 ea blood sugar diagnostic (True #100 ea 12/31/22 07/01/23 Rx Metrix Glucose Test Strip) lancets 33 gauge (TRUEplus Lancets) #100 ea 12/31/22 07/01/23 Rx blood-glucose meter (True Metrix #1 ea 01/01/23 07/01/23 Rx Air Glucose Meter) Continuous Glucose Monitor #1 ea 01/20/23 05/03/23 Rx blood-glucose meter,continuous #1 ea 04/15/23 07/01/23 Rx (Dexcom G7 Physical Therapy Technician) blood-glucose sensor (Dexcom G7 #3 ea 04/15/23 07/01/23 Rx Sensor device) hydrocodone 5 mg-acetaminophen 325 1 tablet PO Q8H PRN pain #20 tabs 05/03/23 09/16/23 Rx mg tablet pen needle, diabetic 32 gauge x #300 ea 05/20/23 Rx (Droplet Pen Needle) furosemide 40 mg tablet 40 mg PO DAILY #90 tabs 06/21/23 09/20/23 Rx semaglutide 2 mg/dose (8 mg/3 mL) 2 mg (0.75 mL) subcut WEEKLY #9 mL 07/01/23 09/20/23 Rx subcutaneous pen injector (Ozempic) atorvastatin 80 mg tablet 80 mg PO HS 07/28/23 09/20/23 History glipizide 5 mg tablet 5 mg PO DAILY 07/28/23 09/20/23 History insulin degludec 100 unit/mL (3 10 unit subcut HS 07/28/23 09/20/23 History mL) subcutaneous pen (Tresiba FlexTouch U-100 insulin) losartan 50 mg tablet 50 mg PO BID #180 tabs 08/02/23 09/20/23 Rx fenofibrate nanocrystallized 145 145 mg PO DAILY #90 tabs 08/25/23 09/20/23 Rx mg tablet potassium chloride 10 mEq See Rx Instructions .Route 08/25/23 09/20/23 Rx capsule,extended release .COMPLEX #90 caps cyclobenzaprine 10 mg tablet 10 mg PO DAILY PRN Back Pain 09/16/23 09/16/23 History Laboratory Tests 09/20/23 07:29 POC Capillary Glucose 147 H mg/dl (65-105) Patient hx anesthesia problems: none Family hx anesthesia problems: none Results Review: All pre-operative results and documents have been reviewed as part of the pre-operative evaluation. [facility] Past Medical History Medical History Cardiomyopathy Diabetes mellitus HTN (hypertension) Hyperlipidemia Hypertriglyceridemia Pacemaker Medtronic dual-chamber pacemaker May 2013 for complete heart block, upgrade to a biventricular pacemaker for decline in ejection fraction. Generator change 06/25/2022. Surgical History Surgical History Hx of appendectomy Hx of cholecystectomy Family History Family History Father Diabetes mellitus, Onset Age: 68 Fa
[2023-09-20] MEDS: ceFAZolin 2 GM/D5W 50 ML 2 GM/50 ML BAG IVPB (09:02)
[2023-09-20] MEDS: LIDOCAINE HCL 1% LOCAL INJ 20 ML VIAL 10 ML INFILTRATE (09:23)
[2023-09-20] MEDS: BUPIVACAINE/EPINEPHRINE 0.5% 50 ML VIAL 10 ML INFILTRATE (09:24)
[2023-09-20] MEDS: fentaNYL CITRATE INJ (*CRX) 100 MCG/2 ML VIAL 25 MCG IV PUSH ×2 (10:23→10:27)
[2023-09-20] MEDS: ONDANSETRON INJ 4 MG/2 ML VIAL IV PUSH (10:49)
[2023-09-20] MEDS: oxyCODONE HCL (*CRX) 5 MG TAB IR PO (11:38)
[2023-09-20] MEDS: diphenhydrAMINE HCl INJ 50 MG/ML VIAL 12.5 MG IV PUSH (12:29)
== END 2023-09-20 13:15 | disposition home or self-care (01) ==
PROVIDERS: PCP Family Medicine; Visit Provider Anesthesiology Pain Medicine
PROC: (CPT 0275T; principal; 2023-09-20 09:00)
DX: M48.062 Spinal stenosis, lumbar region with neurogenic claudication (principal); E11.9 Type 2 diabetes mellitus without complications; G89.29 Other chronic pain; I10 Essential (primary) hypertension; E78.5 Hyperlipidemia, unspecified; E78.1 Pure hyperglyceridemia; E66.9 Obesity, unspecified; Z68.33 Body mass index [BMI] 33.0-33.9, adult; Z79.51 Long term (current) use of inhaled steroids; Z79.891 Long term (current) use of opiate analgesic; Z79.85 Long-term (current) use of injectable non-insulin antidiabetic drugs; Z79.84 Long term (current) use of oral hypoglycemic drugs; Z79.4 Long term (current) use of insulin; Z98.890 Other specified postprocedural states; Z95.0 Presence of cardiac pacemaker; Z90.49 Acquired absence of other specified parts of digestive tract; Z87.891 Personal history of nicotine dependence; Z86.79 Personal history of other diseases of the circulatory system; Z82.49 Family history of ischemic heart disease and other diseases of the circulatory system; Z00.6 Encounter for examination for normal comparison and control in clinical research program
CPT/HCPCS: 0275T; 82948; 99199; A9270; C1889; J0690; J1200; J2371; J2405; J2704; J3010; J7120

== ENCOUNTER 2023-12-07 09:00 | Outpatient (RCR) | payer MEDICARE, SELFPAY ==
--- NOTE | 2023-10-22 10:03 | OPREHPOC ---
Outpatient Therapy Plan of Care This is a Multidisciplinary Plan of Care that may contain components documented by all disciplines (PT, OT, and ST.) PT Problem 1 PT Problem #1 Knowledge Deficit PT Goal 1 Goal / Goal Update *indep with HEP * good body mechanics and positioning Target Visit 10 PT Problem 2 PT Problem #2 Pain PT Goal 1 Goal / Goal Update 1* decrease pain to 6/10 at worst 2* radicular pain to R and L knee at worst 3* self assessment Oswestry rating of 30% limitation in activity Target Visit 10 PT Problem 3 PT Problem #3 Impaired Flexibility PT Goal 1 Goal / Goal Update increase flexibility of hips, to improve mobility skills supine SLR/hamstring length 1* R 55' 2* L 55' 3* supine R hip flexion to 100' without pain increase PT Problem 4 PT Problem #4 Impaired Strength PT Goal 1 Goal / Goal Update increase strength of trunk and hips to improve stability to back 1* pt perform 20 reps of R and L mat strengthening exercises 2* 2 minute walking test distance of 400' Target Visit 10
--- NOTE | 2023-10-22 10:04 | PTOPEVAL1 ---
Assessment and note entered by Francia Wing, PT Evaluation Information Assessment Status Evaluation ICD-10 Condition Codes (PT) Pain in low back M54.50,M54.16 Other ICD-10 Condition Codes ( spondylosis lumbar M47.817 PT) Onset September 2023 Subjective Information chronic back pain; had MILD L 3-4-5 in September, and pain is worse than before surgery; had PT treatment prior to surgery and it eased the pain; have been walking some, short distances to [employer] in yard; but not doing any exercises for his back Activity: retired; indep with self care and light home tasks-- limited standing time and pain increases; 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, 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; problems with standing to cook, wash dishes- after 5 minutes get cramps in legs; Reported Pain Level Pain Score Self Report Additional Pain Score Comments pain range in the past week: 2-10/10; low back, lateral hips and radicular constant into posterior LE to above ankles; report: with standing/ walking over 5 minutes-- spasms over both posterior legs; sleeping awaken 10-15x/night decrease pain: sitting, recliner with legs elevated; take muscle relaxer, pain med script PRN increase pain: sit, walk, stand, bend forward, roll over in bed heat does not help; ice may give little help; have a back brace- have not been using; discussed PRN use for increased activity Assessment PT Clinical Summary Héctor has the diagnosis of lumbar spondylosis, s/p MILD L 3-4-5. Oswestry self assessment rating of 50% limitation in activity level. Standing, sleeping, walking, sitting and activity levels are decreased due to back and LE pain- radicular into both legs to ankles. With the evaluation: he has decreased strength and flexibility over both hips and trunk; 2 minute walking test distance of 340'; pain is increased with standing trunk extension more than flexion and R hip flexion in supine and SLR.
--- NOTE | 2023-12-07 09:37 | PTOPDC ---
Assessment and note entered by Francia Wing, PT Discharge Report Assessment Status Discharge ICD-10 Condition Codes (PT) Pain in low back M54.50,M54.16 Other ICD-10 Condition Codes ( spondylosis lumbar M47.817 PT) Onset September 2023 Subjective Information feeling better, really like the water exercises; am doing the exercises at home, but do not have a pool membership; feel like ready to be done with therapy; Reported Pain Level Pain Score Self Report Additional Pain Score Comments pain range in the past week 0-3/10; when first wake up in AM- have some pain in calves , eases with walking few minutes increase pain: leaning over with cooking, dishes; standing still 20 minutes; no awakening from sleep due to pain Assessment PT Clinical Summary Héctor has received 10 PT sessions. Compared to the initial evaluation: pain from 2- 10/10 to 0-3/10; continues to have some radicular pain into calves, intermittent and reports less; reported standing tolerance with kitchen tasks, from 5 to 20 minutes and sleeping awaken 10-15 x/ night to not waking up due to back pain; self assessment Oswestry rating from 50% to 4% limitation in activity level; increase flexiblity of hamstring by 5' with supine SLR stretch; increase strength of trunk and hips; 2 minute walking test distance from 340 to 375'; education for HEP and body mechanics, pain management. The goals were partially achieved. Discharge PT services. He is to continue with his HEP and pain control. Plan of Care PT Services Indicated No
== END 2023-12-07 11:04 | disposition home or self-care (01) ==
LOC: ANHPT 09:00
PROVIDERS: PCP Family Medicine; Visit Provider Anesthesiology Pain Medicine
DX: M47.817 Spondylosis without myelopathy or radiculopathy, lumbosacral region (principal)
CPT/HCPCS: 97110; 97113; 97140; 97161; 97530

== ENCOUNTER 2023-12-14 13:00 | Outpatient (RCR) | payer MEDICARE, SELFPAY | END 2023-12-14 16:00 | disposition home or self-care (01) | LOC: ANHDMC 13:00 | PROVIDERS: PCP Family Medicine; Visit Provider Nurse Practitioner | DX: E11.65 Type 2 diabetes mellitus with hyperglycemia (principal); Z71.89 Other specified counseling | CPT/HCPCS: G0108 ==

== ENCOUNTER 2024-10-04 12:22 | Outpatient (CLI) | payer MEDICARE, SELFPAY ==
--- NOTE | ~2024-10-04 | DEXA_ITS ---
Bone Density Report Name: CHARLOTTE BHATT Age: 74 Sex: Male Ethnicity: White Date of : 1950 Indication: screening for osteoporosis; height loss; Referring Provider: KIM GUNN Study: Bone densitometry was performed. Exam Date: October 04, 2024 Accession number: [id number] Bone Density: Region BMD T-score Z-score Classification AP Spine(L1-L4) 0.941 -1.4 -0.4 Osteopenia Femoral Neck (Left) 0.626 -2.2 -0.9 Osteopenia Total Hip (Left) 0.882 -1.0 -0.2 Normal Femoral Neck (Right) 0.656 -2.0 -0.7 Osteopenia Total Hip (Right) 0.884 -1.0 -0.2 Normal Total Hip Mean 0.883 -1.0 -0.2 Normal World Health Organization criteria for BMD impression classify patients as: Normal (T-score at or above -1.0), Osteopenia (T-score between -1.0 and -2.5), or Osteoporosis (T-score at or below -2.5). 10-year Fracture Risk(1): Major Osteoporotic Fracture 8.3% Hip Fracture 2.8% Reported Risk Factors: [place] (), Neck BMD=0.626, BMI=34.6 (1) FRAX(R) Version 3.08. Fracture probability calculated for an untreated patient. Fracture probability may be lower if the patient has received treatment. Clinical Information Provided by Patient: Has used the following medications: Vitamin D Patient maximum height was 68 No regular weight bearing exercise Drinks caffeinated beverages Impression: The patient has low bone mass, based on the Left Femoral Neck T-score. The patient has an estimated ten-year risk of hip fracture of 2.8% and an estimated ten-year risk of major fracture of 8.3%, based on the WHO FRAX algorithm. Discussion: BONE DENSITY IS LOW AT ONE OR MORE SKELETAL SITES. This patient's lowest T-score is low at one or more skeletal sites. It meets the World Health Organization's (WHO) criteria for ?low bone mass? (T-score between -1.0 and -2.5). The patient's 10-year risk of fracture as calculated by FRAX is less than the threshold where pharmacological therapy is recommended by the National Osteoporosis Foundation (NOF). However, all treatment decisions require clinical judgment and consideration of individual patient factors, including patient preferences, comorbidities, previous drug use, risk factors not captured in the FRAX model (e.g., frailty, falls, vitamin D deficiency, increased bone turnover, interval significant decline in bone density) and possible under or overestimation of fracture risk by FRAX. The patient should follow a healthful lifestyle (good nutrition with adequate calcium and vitamin D, and appropriate weight-bearing exercise). Follow-Up: Consider repeating this study in 2 to 3 years to reassess this patient's status, or sooner if there is some new clinical indication. Reported by: GEORGI on 10/04/2024 1:13:00 PM. Reviewed, dictated and finalized at location A.
== END 2024-10-04 12:23 | disposition home or self-care (01) ==
PROVIDERS: PCP Family Medicine
DX: M81.0 Age-related osteoporosis without current pathological fracture (principal); M85.89 Other specified disorders of bone density and structure, multiple sites; M48.061 Spinal stenosis, lumbar region without neurogenic claudication; Z13.820 Encounter for screening for osteoporosis
CPT/HCPCS: 77080

== ENCOUNTER 2024-12-06 10:00 | Outpatient (RCR) | payer MEDICARE, SELFPAY ==
--- NOTE | 2024-10-11 09:55 | OPREHPOC ---
Outpatient Therapy Plan of Care This is a Multidisciplinary Plan of Care that may contain components documented by all disciplines (PT, OT, and ST.) PT Problem 1 PT Problem #1 Knowledge Deficit PT Goal 1 Goal / Goal Update *independent with HEP Target Visit 8 PT Problem 2 PT Problem #2 Pain PT Goal 1 Goal / Goal Update 1* pt report pain rating at worst of 8/10 2* radicular pain to mid grover at worst Target Visit 8 PT Problem 3 PT Problem #3 Impaired Strength PT Goal 1 Goal / Goal Update 1* increase strength of trunk and LE's to 4/5 2* pt able to tolerate 45 minutes of aquatic exercises Target Visit 8 PT Problem 4 PT Problem #4 Impaired Functional Mobility PT Goal 1 Goal / Goal Update 1* 2 minute walking test distance of 325' to improve community walking and shopping ability Target Visit 8
--- NOTE | 2024-10-11 09:55 | PTOPEVAL1 ---
Assessment and note entered by Francia Wing, PT Evaluation Information Assessment Status Evaluation ICD-10 Condition Codes (PT) Pain in low back M54.50 Other ICD-10 Condition Codes ( stenosis PT) Onset over 1 year ago Subjective Information chronic back pain, increasing; had MILD Sep 2023- - did not really help; saw neurosurgeon, to have further testing/imaging, unable to have MRI due to pacemaker; dr said maybe therapy can give me some relief in back pain, until they decide about surgery or not; due to back pain- unable to golf, drive to see sister 100 miles away- cannot go in car very long does his yard work, but cannot hardly walk the next day previous PT here in the past, not able to do the exercises anymore- back hurts too much activity: retired, at home with ; Reported Pain Level Pain Score Self Report Additional Pain Score Comments pain range in the past week 3-1010; bilateral low back, into R sacrum-- anterior, lateral LE- constant to ankle' increase pain: stand/walk 5 minutes, decrease pain: sit, elevated legs; change positions often; have prescription pain med- take occasionally, makes him too sleepy, over the counter meds sleeping- can generally sleep through the night Assessment PT Clinical Summary Héctor has the diagnosis of lumbar stenosis, back pain radicular. He has chronic back pain, with MILD in Sep 2023. Pain has increased and now constant into R LE to ankle. Back Index self rating of 72% limitation in activity level. Reports decreased walking, standing and activity tolerance with home tasks and not able to golf. He has seen a neurosurgeon and going to have more imaging for possible back surgery. Medical history: pacemaker, HTN, diabetes. With the evaluation: he has decreased weight bearing on R LE; 2 minute walking test distance of 270'; with gait, does not use an assistive device, instructed and trial of wheeled walker, but he did report any difference in pain and did not want to use walker; pain is increased with supine R hip flexion and SLR. Skilled PT services are indicated for modalities for pain control, use of aquatic therapy and land exercises to increase flexibility and strength of trunk and LE's, with education for HEP, body mechanics and posture. Plan of Care Interventions Aquatic Therapy,Hot Pack/Cold Pack,Manual Therapy, Mechanical Traction,Neuro Re-education,Patient/ Caregiver Education,Therapeutic Activities, Therapeutic Exercise PT Services Indicated Yes Treatment Frequency and 1-2x/wk for 8 visits Duration These treatments will address the objective and functional deficits as defined above. The patient will be advanced safely and appropriately in order for the patient to progress towards his/her prior level of function. Additional exercises will be introduced and as well as a comprehensive home exercise program upon discharge, if needed, ?to ensure carryover of functional gains achieved in the clinic. This treatment plan has been reviewed and agreement upon by the patient.
--- NOTE | 2024-10-25 09:40 | PCPTNOTE ---
Pt canceled due to being stuck in traffic.
--- NOTE | 2024-12-06 10:33 | OPREHPOC ---
Outpatient Therapy Plan of Care This is a Multidisciplinary Plan of Care that may contain components documented by all disciplines (PT, OT, and ST.) PT Problem 1 PT Problem #1 Knowledge Deficit PT Goal 1 Goal / Goal Update *independent with HEP 12-06-24 d/c goal met Target Visit 8 Progress Met PT Problem 2 PT Problem #2 Pain PT Goal 1 Goal / Goal Update 1* pt report pain rating at worst of 09/24 2* radicular pain to mid grover at worst 12-06-24 d/c goals not met; #1 11/24; #2 to foot Target Visit 8 Progress Not Met PT Problem 3 PT Problem #3 Impaired Strength PT Goal 1 Goal / Goal Update 1* increase strength of trunk and LE's to 4/5 2* pt able to tolerate 45 minutes of aquatic exercises 12-06-24 d/c goals met Target Visit 8 Progress Met PT Problem 4 PT Problem #4 Impaired Functional Mobility PT Goal 1 Goal / Goal Update 1* 2 minute walking test distance of 325' to improve community walking and shopping ability 12-06-24 d/c goal met at 330' Target Visit 8 Progress Met
--- NOTE | 2024-12-06 10:33 | PTOPDC ---
Assessment and note entered by Francia Wing, PT Assessment Status Discharge ICD-10 Condition Codes (PT) Pain in low back M54.50 Other ICD-10 Condition Codes ( stenosis PT) Onset over 1 year ago Subjective Information feel like my back is about the same; changed my med to tramadol--it does not help; have been doing the stretches and trying to move as much as I can; do not have a follow up appt with ; with the second CT scan: 5 bulging discs and decreased bone density; Reported Pain Level Pain Score Self Report Additional Pain Score Comments pain range of 3-10/10 in the past week; burning/ foot on fire, pain into R LE to toes- constant pain but degree of pain varies increase pain: 5- 10 minutes of walking; stairs; decrease pain: change positions, sit/rest; problems getting comfortable; Assessment PT Clinical Summary Héctor has received a total of 7 PT sessions. He voiced frustration about the continued pain into his R leg. Compared to the initial evaluation: pain range is the same at 3-10/10; radicular pain continues to be into R LE constant to foot; self assessment with back index rating from 72 to 66% limitation in activity level; reported standing/walking time is same at 5-10 minutes; 2 minute walking test distance improved from 270 to 330' with pain rating the same after each walk; with walking, decreased weight shift onto R LE due to pain increase; He does not want to use an assistive device--stated does not help the pain; slight increase in LE strength, but continues to have pain with supine R hip flexion, IR, ER and hamstring stretch; education completed for HEP and body mechanics. The goals were partially met. Discharge PT. He is to contact the neurosurgeon for a follow up appointment. Plan of Care PT Services Indicated No
== END 2024-12-06 15:02 | disposition home or self-care (01) ==
LOC: ANHPT 10:00
PROVIDERS: PCP Family Medicine
DX: M48.061 Spinal stenosis, lumbar region without neurogenic claudication (principal)
CPT/HCPCS: 97110; 97113; 97161; 97530